=== PATIENT | female | born 1995 | race Caucasian/White ===

== ENCOUNTER → 2018-12-25 | Outpatient (CLI) | payer OTHER ==
[2018-12-27 23:09] LABS: CHLAMYDIA TRACHOMATIS, NAA Negative (Negative); NEISSERIA GONORRHOEAE, NAA Negative (Negative)
== END | disposition home or self-care (01) ==
LOC: LAB 15:23 → LAB SHORT 15:23
PROVIDERS: Obstetrics & Gynecology
DX: Z36.89 Encounter for other specified antenatal screening (principal)
CPT/HCPCS: 87491; 87591; G0123

== ENCOUNTER → 2019-06-10 | Outpatient (CLI) | payer OTHER ==
[~2019-06-10] MED LIST: IBUP800; PRENATAL TABLE1 EAC2 PO; Percocet 5-3251 EACH
== END | disposition home or self-care (01) ==
LOC: LAB SHORT 16:05 → LAB 16:05
DX: Z34.00 Encounter for supervision of normal first pregnancy, unspecified trimester (principal)
CPT/HCPCS: 87081; 87653

== ENCOUNTER 2019-07-16 04:23 | Inpatient (IN) | payer OTHER ==
[~2019-07-16] VITALS: Ht 170.2 cm; Wt 111.8 kg
[2019-07-16] MEDS ORDERED: PRENATAL TABLE1 EAC2 PO (04:45)
[2019-07-16 04:46] LABS: BASOPHILS ABSOLUTE AUTO 0.04 K/mm3 (0.00-0.23); BASOPHILS PERCENT AUTO 0 % (0-2); EOSINOPHILS ABSOLUTE AUTO 0.12 K/mm3 (0.00-0.68); EOSINOPHILS PERCENT AUTO 1 % (0-6); Hematocrit 35.9 % (33.0-51.0); Hemoglobin 11.9 g/dL (11.5-16.0); IMMATURE GRAN ABSOLUTE AUTO 0.21 K/mm3 (0.00-0.10); IMMATURE GRAN PERCENT AUTO 1 % (0-1); LYMPHOCYTES ABSOLUTE AUTO 3.01 K/mm3 (0.84-5.20); LYMPHOCYTES PERCENT AUTO 20 % (21-46); MONOCYTES ABSOLUTE AUTO 0.87 K/mm3 (0.16-1.47); MONOCYTES PERCENT AUTO 6 % (4-13); Mean Corpuscular HGB 30.1 pg (26.0-34.0); Mean Corpuscular HGB Conc 33.1 g/dL (31.5-36.5); Mean Corpuscular Volume 91 fL (80-100); NEUTROPHILS ABSOLUTE AUTO 11.11 K/mm3 (1.96-9.15); NEUTROPHILS PERCENT AUTO 72 % (41-73); Platelet Count 188 K/mm3 (150-400); RDW Coefficient Variation 13.4 % (11.7-14.2); RDW Standard Deviation 44.7 fL (35.1-46.3); Red Blood Cell Count 3.96 M/mm3 (3.80-5.20); White Blood Cell Count 15.36 K/mm3 (4.00-11.30)
--- NOTE | 2019-07-16 15:34 | NUR ---
07/16/19 1534 Sanna Richey 1502 PATIENT ARRIVE TO [facility] OR WITH HUNTER INTACT DRAINING LIGHT PINK URINE
[2019-07-16 15:41] LABS: PCO2 Cord - Arterial 73.7 mmHg (40-50); PO2 Cord - Arterial 14.1 mmHg (16-20); pH Cord - Arterial 7.11 (7.28-7.35)
[2019-07-16 15:42] LABS: PCO2 Cord - Venous 61.4 mmHg (40-50); PO2 Cord - Venous 13.3 mmHg (28-32); pH Umbilical Cord - Venous 7.18 (7.26-7.35)
[2019-07-16 19:10] LABS: Source, Urine Clean Catch
[2019-07-16 19:16] LABS: Bilirubin, Urine Neg (Neg); Blood, Urine 5+ (Neg); Glucose Qualitative, Urine Neg (Neg); Ketones, Urine 1+ (Neg); Leukocyte Esterase, Urine 1+ (Neg); Nitrite, Urine Neg (Neg); Protein, Urine 2+ (Neg); Specific Gravity, Urine 1.005 (1.003-1.022); Urobilinogen, Urine NORM (Normal)
[2019-07-16 19:26] LABS: Appearance, Urine Hazy (Clear); Color, Urine Yellow (P-Yellow)
[2019-07-16 19:27] LABS: Bacteria Few /hpf; Red Blood Cells, Urine TNTC /hpf (0-2); Squamous Epithelial Cells Few /hpf (Few)
[2019-07-17 05:23] LABS: Hematocrit 29.6 % (33.0-51.0); Hemoglobin 9.6 g/dL (11.5-16.0); Mean Corpuscular HGB 29.9 pg (26.0-34.0); Mean Corpuscular HGB Conc 32.4 g/dL (31.5-36.5); Mean Corpuscular Volume 92 fL (80-100); Mean Platelet Volume 11.8 fL (9.1-12.4); Platelet Count 155 K/mm3 (150-400); RDW Coefficient Variation 13.7 % (11.7-14.2); RDW Standard Deviation 46.1 fL (35.1-46.3); Red Blood Cell Count 3.21 M/mm3 (3.80-5.20); White Blood Cell Count 14.63 K/mm3 (4.00-11.30)
--- NOTE | 2019-07-18 06:00 | NUR ---
RN HAD TO REMIND MOM THAT IT IS IMPORTANT TO WAKE BABY UP AND FEED HER EVERY 2-3 HOURS. MOM VERBALIZED UNDERSTANDING, DAD SLEEPING AT BEDSIDE.
--- NOTE | 2019-07-18 07:45 | NUR ---
WAS CALLED IN TO PT ROOM SHE WAS GOING TO THE [facility]. SHE STATED SHE FELT VERY DIZZY AND WEAK AND WAS HAVING A HARD TIME KEEPING HER EYES OPEN, AND SEEM OUT OF IT. ENCOURAGED HER TO GET IN TO A WHEELCHAIR SO SHE COULD GO BACK TO BED. SHE STATED SHE FELT BETTER SITTING UP. SHE CONTINUED TO NOD IN AND OUT, STATED SHE FELT HOT AND SWEATY. BPS WERE 78/43 P 98, 83/48 P 92, 67/44 P 94, 66/49 P112 SAO2 98%. DR LI NOTIFIED, LR X 1L GIVEN, HAD PT DRINK ORANGE JUICE AND TRY AND EAT. AFTER APPROX 30 MIN, SHE WAS AWAKE AND ALERT, TALKING WELL, DENIED FEELING DIZZY AND BP 108/52 P111. ENCOURAGED PT TO MAKE SURE SHE IS EATING REGULARLY, ESPECIALLY WHEN SHE TAKES PERCOCET, AND ALSO TO BE SURE SHE IS GETTING PLENTY OF FLUIDS SHE HAS NOT EATEN OR DRANK MUCH IN THE PREVIOUS 24 HOURS. VERBALIZED UNDERSTANDING.
[2019-07-18] MEDS ORDERED: IBUP800 (12:33)
[2019-07-18] MEDS ORDERED: Percocet 5-3251 EACH (12:34)
--- NOTE | 2019-07-18 13:02 | NUR ---
CONSULT. BABY HAS NOT COORDINATED HER SUCK SINCE . MOM IS USING A SHIELD WITH SNS WITH FORMULA DURING BF SESSIONS. BABY IS CURRENTLY SUPPLEMENTED WITH ABOUT 10CC. INSTRUCT IN STARTING TO PUMP AT LEAST 8X/DAY FOR 15-20 MINUTES TO STIMULATE PRODUCTION BABY IS NOT SUCKING STRONGLY ENOUGH TO STIMULATE HER BREASTS. EVALUATED BABY'S MOUTH, SHE IS VERY SLOW TO TRY AND SUCK ON A FINGER, KEEPS POSTERIOR TONGUE ELEVATED, DOES NOT EXTEND OR CURL TONGUE TIP WELL, USES BITING MOTION RATHER THAN SUCKING, POSTERIOR TONGUE IS NOT VERY MOBILE. INSTRUCT/DEMO TONGUE EXERCISES TO DO 6-8X/DAY TO HELP STRENGTHEN AND INCREASE MOBILITY OF HER TONGUE: TONGUE PRESSES, TUG OF WAR, AND FINGER FOLLOW ALONG GUMLINE. PLAN FOR FEEDINGS IS CONTINUE WITH SHIELD AND SNS DURING THE DAY, AT NIGHT HAVE DAD FINGER FEED AND MOM IS TO PUMP. WHEN GETTING BM, SUBSTITUTE INTO SNS RATHER THAN FORMULA. WILL FOLLOW UP IN CLINIC IN A COUPLE DAYS. QUESTIONS ANSWERED.
--- NOTE | 2019-07-18 13:14 | NUR ---
TALKED WITH DR LI ABOUT PT EPISODE THIS AM. PT IS NOW FEELING VERY WELL AND WOULD LIKE TO GO HOME. DR LI OK WITH THAT.
--- NOTE | 2019-07-18 15:15 | NUR ---
D/C HOME AMBULATING WELL.
== END 2019-07-18 15:15 | disposition home or self-care (01) | DRG 788 ==
LOC: BC 04:23
PROVIDERS: ADMIT Obstetrics & Gynecology
PROC: 3E033VJ Introduction of Other Hormone into Peripheral Vein, Percutaneous Approach (ICD-10-PCS; 2019-07-16)
PROC: 10907ZC Drainage of Amniotic Fluid, Therapeutic from Products of Conception, Via Natural or Artificial Opening (ICD-10-PCS; 2019-07-16)
PROC: 3E0R3BZ Introduction of Anesthetic Agent into Spinal Canal, Percutaneous Approach (ICD-10-PCS; 2019-07-16)
PROC: 10D00Z1 Extraction of Products of Conception, Low, Open Approach (ICD-10-PCS; principal; 2019-07-16 15:00)
DX: O48.0 Post-term pregnancy (principal); O99.824 Streptococcus B carrier state complicating childbirth; O62.1 Secondary uterine inertia; Z37.0 Single live birth; Z3A.41 41 weeks gestation of pregnancy; O61.0 Failed medical induction of labor; O77.0 Labor and delivery complicated by meconium in amniotic fluid; O76 Abnormality in fetal heart rate and rhythm complicating labor and delivery; O26.53 Maternal hypotension syndrome, third trimester
CPT/HCPCS: 36415; 51702; 81001; 82803; 85025; 85027; 86850; 86900; 86901; 87086; J0290; J0690; J1885; J2001; J2405; J2590; J2765; J3010; J7120

== ENCOUNTER → 2019-07-30 | Outpatient (CLI) | payer OTHER | END | disposition home or self-care (01) | LOC: LAB SHORT 14:20 → LAB 14:20 | DX: N39.0 Urinary tract infection, site not specified (principal) | CPT/HCPCS: 87086 ==

== ENCOUNTER → 2024-11-01 | Outpatient (CLI) | payer OTHER | END | disposition home or self-care (01) | LOC: LAB SHORT 09:15 | DX: J02.9 Acute pharyngitis, unspecified (principal) | CPT/HCPCS: 87081; 87430 ==